=== PATIENT | female | born 1995 | race African-American/Black ===

== ENCOUNTER 2023-04-04 17:44 | Emergency (ER) | payer SELFPAY | END 2023-04-04 17:50 | disposition left against medical advice (07) | LOC: ER 17:48 | DX: Z04.3 Encounter for examination and observation following other accident (principal); W19.XXXA Unspecified fall, initial encounter ==

== ENCOUNTER 2023-08-30 09:50 | Emergency (ER) | payer SELFPAY ==
[2023-08-30] MEDS ORDERED: NS IV 1000 ML 1,000 ML IV ONE (10:15)
--- NOTE | 2023-08-30 10:26 | ED General ---
General Chief Complaint: Upper Extremity Stated Complaint: LEFT HAND SWELLING / PAIN Nursing Triage Note: PT AMB TO [facility] 5 PT CO OF L HAND PAIN, PT IS RAMBLING ON CO L HAND PAIN, HAS NUMBEROUS CO WONDERING IF IS , SAYING SOME ONE CUT OFF PART OF TOE, STATES SOMEONE TRIED TO CUT OPEN HAND WHERE INFECTION WAS. PT IS HOMELESS. REPORTS DOES SMOKE POT AND USE METH. PT ALSO REPORTS MENTAL HEALTH ISSUES. PT HAS DIFFICULTY STAYING ON TASK. PT HAS BLISTER INBETWEEN FIRST AND SECOND FINGERS HAS A BLISTER, PT HAS REDDNESS AND PAIN. Source of Information: Patient Exam Limitations: No Limitations History of Present Illness Date Seen by Provider: Aug 30, 2023 Time Seen by Provider: 09:55 Initial Comments Here with report of left hand pain over the last 2 days and is associated with swelling. Apparently somebody was trying to help her and was going to open the wound by cutting it open. That was attempted last night but she could not take the pain so that was stopped. She does admit to smoking marijuana but denies meth use recently. Does admit to a few shots of alcohol but states she is trying to get off that as well. Unsure of why she has the wound to her left hand between the second and third finger. Adamantly denies that she was trying to inject there. Also complains of wound to the top of the right great toe that she is unsure of cause. She has similar but smaller wound on the left great toe and states that it may be from her sandals. Denies fevers but does admit to not feeling well. She is currently homeless but is staying at the [facility]. She is also concerned that she could be as have history with difficulties during including gestational diabetes. Complains of pain when moving the index finger and to a lesser extent the middle finger on the left hand. Redness and swelling noted and reported between the fingers with a blister that is currently nondraining. Timing/Duration: 2-3 Days, Getting Worse Severity: Moderate Modifying Factors: worse with Movement Associated Systoms: No Chest Pain, No Cough; Malaise; No Nausea/Vomiting, No Shortness of Air, No Weakness Allergies and Home Medications Allergies Coded Allergies: No Known Drug Allergies (Unverified , 08/30/23) Patient Home Medication List Home Medication List Reviewed: Yes Clindamycin HCl (Clindamycin HCl) 300 Mg Capsule, 300 MG PO QID Prescribed by: JOSE GAINES on 08/30/23 1219 Ibuprofen (Ibuprofen) 800 Mg Tablet, 800 MG PO Q8H PRN for PAIN Prescribed by: JOSE GAINES on 08/30/239 Review of Systems Review of Systems Constitutional: see HPI, chills; No fever; malaise EENTM: No nose congestion Respiratory: No cough, No short of breath Cardiovascular: No chest pain, No edema Gastrointestinal: constipation; No nausea, No vomiting Genitourinary: No dysuria, No frequency Musculoskeletal: No back pain; joint pain, muscle pain Skin: change in color, lesions Psychiatric/Neurological: Anxiety; Denies Weakness Past Phpavwr-Eaxedn-Doguqm Hx Patient Social History Tobacco Use?: Yes Tobacco type used: Cigarettes Smoking Status: Current Everyday Smoker Substance use?: Yes Substance type: Methamphetamine, Marijuana Substance frequency: Daily Alcohol Use?: Yes Alcohol Frequency: Daily Pt feels they are or have been: No Past Medical History Surgery/Hospitalization HX: MENTAL HEALTH ISSUES Surgeries: No Respiratory: No Cardiac: No Neurological: No Last Menstrual Period: Aug 16, 2023 Psychosocial: Yes Anxiety, PTSD, Bipolar, Depression Family Medical History Reviewed Nursing Family Hx No Pertinent Family Hx Physical Exam-Suspected Sepsis Physical Exam Vital Signs Vital Signs - First Documented 08/30/23 09:55 Temp 35.6 Pulse 107 Resp 18 B/P (MAP) 123/79 (94) Pulse Ox 100 Capillary Refill : Less Than 3 Seconds Blood Pressure Mean: 94 Height, Weight, BMI Height: '" Weight: lbs. oz. kg; BMI Method: General Appearance: WD/WN, Mild Distress HEENT: PERRL/EOMI, Pharynx Normal Neck: Non Tender, Supple Respiratory: Lungs Clear, Normal Breath Sounds Cardiovascular: No Murmur, Tachycardia Gastrointestinal: Non Tender, Soft Back: Normal Inspection, No CVA Tenderness, No Vertebral Tenderness Extremity: No Calf Tenderness, Other (Swelling with redness noted between the second and third digit in the webspace on the palmar side where there is blister noted with increasing redness and pain especially over the second metacarpal and MCP area and to a lesser extent the third metacarpal. No red streaks extending above the hand. Swelling noted in the area. Difficulty with range of motion of the second digit on flexion and extension and pain limited on both active and passive range of motion. This is improved in the third digit. No Tatian's to range of motion at the wrist.) Neurologic/Psychiatric: Alert, Oriented x3, Other (Sometimes activated speech and flight of ideas but redirectable) Skin: warm/dry, other (Erythema as noted above with wound as noted above) Focused Exam Lactate Level 08/30/23 10:50: Lactic Acid Level 0.70 Lactic Acid Level Laboratory Tests Test 08/30/23 10:50 Lactic Acid Level 0.70 MMOL/L (0.50-2.00) Procedures/Interventions I&D : Site: Left hand webspace second and third digit Blade Size: 11 I & D Procedure: betadine prep, sterile drapes applied, sterile dressing applied Progress Wound anesthetized using local and regional digital block with 1% lidocaine x7 mL. Anesthesia obtained. With 11 blade scalpel and small amount of purulent drainage obtained. This was cultured. Wound did not track into the hand itself and seem to be more topical. This was covered with antibiotic ointment and sterile dressing and secured with gauze by me. Tolerated procedure well with no complications. Progress/Results/Core Measures Suspected Sepsis SIRS Temperature: Pulse: 107 Respiratory Rate: 18 Laboratory Tests 08/30/23 10:48: White Blood Count 7.9 Blood Pressure 123 /79 Mean: 94 08/30/23 10:50: Lactic Acid Level 0.70 Laboratory Tests 08/30/23 10:48: Creatinine 0.59L, INR Comment 1.0, Platelet Count 243, Total Bilirubin 0.3 Results/Orders Lab Results Laboratory Tests Test 08/30/23 10:16 08/30/23 10:48 08/30/23 10:50 Range/Units Urine Color YELLOW Urine Clarity CLEAR Urine pH 7.5 5-9 Urine Specific [place] 1.020 1.016-1.022 Urine Protein NEGATIVE NEGATIVE Urine Glucose (UA) NEGATIVE NEGATIVE Urine Ketones NEGATIVE NEGATIVE Urine Nitrite NEGATIVE NEGATIVE Urine Bilirubin NEGATIVE NEGATIVE Urine Urobilinogen 1.0 < = 1.0 MG/DL Urine Leukocyte Esterase NEGATIVE NEGATIVE Urine RBC (Auto) NEGATIVE NEGATIVE Urine RBC NONE /HPF Urine WBC NONE /HPF Urine Squamous Epithelial Cells 2-5 /HPF Urine Crystals PRESENT H /LPF Urine Amorphous Sediment LARGE KISHA PHOSPHATE H /LPF Urine Bacteria TRACE /HPF Urine Casts NONE /LPF Urine Mucus SMALL H /LPF Urine Culture Indicated NO Urine Opiates Screen NEGATIVE NEGATIVE Urine Oxycodone Screen NEGATIVE NEGATIVE Urine Methadone Screen NEGATIVE NEGATIVE Urine Barbiturates Screen NEGATIVE NEGATIVE Ur Tricyclic Antidepressants Screen NEGATIVE NEGATIVE Urine Phencyclidine Screen NEGATIVE NEGATIVE Urine Amphetamines Screen POSITIVE H NEGATIVE Urine Methamphetamines Screen POSITIVE H NEGATIVE Urine Benzodiazepines Screen NEGATIVE NEGATIVE Urine Cocaine Screen NEGATIVE NEGATIVE Urine Cannabinoids Screen POSITIVE H NEGATIVE White Blood Count 7.9 4.3-11.0 10^3/uL Red Blood Count 3.99 3.80-5.11 10^6/uL Hemoglobin 12.9 11.5-16.0 g/dL Hematocrit 39 35-52 % Mean Corpuscular Volume 97 80-99 fL Mean Corpuscular Hemoglobin 32 25-34 pg Mean Corpuscular Hemoglobin Concent 33 32-36 g/dL Red Cell Distribution Width 13.3 10.0-14.5 % Platelet Count 243 130-400 10^3/uL Mean Platelet Volume 10.5 9.0-12.2 fL Immature Granulocyte % (Auto) 0 % Neutrophils (%) (Auto) 66 42-75 % Lymphocytes (%) (Auto) 24 12-44 % Monocytes (%) (Auto) 6 0-12 % Eosinophils (%) (Auto) 4 0-10 % Basophils (%) (Auto) 0 0-10 % Neutrophils # (Auto) 5.2 1.8-7.8 10^3/uL Lymphocytes # (Auto) 1.9 1.0-4.0 10^3/uL Monocytes # (Auto) 0.4 0.0-1.0 10^3/uL Eosinophils # (Auto) 0.3 0.0-0.3 10^3/uL Basophils # (Auto) 0.0 0.0-0.1 10^3/uL Immature Granulocyte # (Auto) 0.0 0.0-0.1 10^3/uL Percent Immature Platelet Fraction 2.0 0.0-7.6 % Prothrombin Time 13.7 12.2-14.7 SEC INR Comment 1.0 0.8-1.4 Activated Partial Thromboplast Time 25 24-35 SEC Sodium Level 140 135-145 MMOL/L Potassium Level 4.5 3.6-5.0 MMOL/L Chloride Level 109 H 98-107 MMOL/L Carbon Dioxide Level 20 L 21-32 MMOL/L Anion Gap 11 5-14 MMOL/L Blood Urea Nitrogen 9 7-18 MG/DL Creatinine 0.59 L 0.60-1.30 MG/DL Estimat Glomerular Filtration Rate 127 BUN/Creatinine Ratio 15 Glucose Level 99 70-105 MG/DL Calcium Level 8.9 8.5-10.1 MG/DL Corrected Calcium 9.1 8.5-10.1 MG/DL Total Bilirubin 0.3 0.1-1.0 MG/DL Aspartate Amino Transf (AST/SGOT) 18 5-34 U/L Alanine Aminotransferase (ALT/SGPT) 14 0-55 U/L Alkaline Phosphatase 86 40-136 U/L C-Reactive Protein High Sensitivity 1.24 H 0.00-0.50 MG/DL Total Protein 6.5 6.4-8.2 GM/DL Albumin 3.7 3.2-4.5 GM/DL Serum Test, Qualitative NEGATIVE NEGATIVE Lactic Acid Level 0.70 0.50-2.00 MMOL/L My Orders Orders - JOSE GAINES MD Cbc And Automated Diff (08/30/23 10:15) Comprehensive Metabolic Panel (08/30/23 10:15) Blood Culture (08/30/23 10:15) Sputum Culture (08/30/23 10:15) Urinalysis (08/30/23 10:15) Urine Culture (08/30/23 10:15) Protime With Inr (08/30/23 10:15) Partial Thromboplastin Time (08/30/23 10:15) Ed Iv/Invasive Line Start (08/30/23 10:15) Vital Signs Adult Sepsis Patie Q15M (08/30/23 10:15) O2 (08/30/23 10:15) Remove Rings In Anticipation O (08/30/23 10:15) Lactic Acid Analyzer (08/30/23 10:15) Hs C Reactive Protein (08/30/23 10:15) Drug Screen Stat (Urine) (08/30/23 10:15) Hcg,Qualitative Serum (08/30/23 10:15) Ns Iv 1000 Ml (Ns Iv 1000 Ml) (08/30/23 10:15) Hand, Left, 3 Views (08/30/23 10:15) Dipht/Pertuss(Acell)/Tet Adult (Dipht/Pe (08/30/23 11:30) Lidocaine 1% Inj 20 Ml (Xylocaine 1% Inj (08/30/23 11:22) General/Regular (08/30/23 Lunch) Clindamycin 900 Mg/50 Ml Ivpb (Clindamyc (08/30/23 12:15) Ketorolac Injection (Ketorolac Injection (08/30/23 12:10) Wound Culture (08/30/23 12:10) Medications Given in ED Current Medications Medications Dose Ordered Sig/Bart Route Start Time Stop Time Status Last Admin Dose Admin Clindamycin Phosphate/Dextrose 50 ml @ 100 mls/hr ONCE ONCE IV 08/30/23 12:15 08/30/23 12:44 DC 08/30/23 12:19 100 MLS/HR Diphtheria/ Tetanus/Acell Pertussis 0.5 ml ONCE ONCE IM 08/30/23 11:30 08/30/23 11:31 DC 08/30/23 11:31 0.5 ML Sodium Chloride 1,000 ml @ 0 mls/hr Q0M ONCE IV 08/30/23 10:15 08/30/23 10:20 DC 08/30/23 10:54 0 MLS/HR Vital Signs/I&O 08/30/23 08/30/23 09:55 11:45 Temp 35.6 [id number] Pulse 107 Resp 18 B/P (MAP) 123/79 (94) Pulse Ox 100 Capillary Refill : Less Than 3 Seconds Blood Pressure Mean: 94 Progress Note : Progress Note Seen and evaluated. IV CBC, CMP, CRP, blood cultures, lactic acid, UA, UDS and ordered. We will get x-ray of the left hand to rule out foreign body. Normal saline 1 L bolus. Monitor patient. Differential diagnosis includes local cellulitis, tenosynovitis of the left hand, sepsis, dehydration, 1214: Left hand x-ray reviewed by me and no obvious foreign body noted on my interpretation. CBC reviewed and is grossly normal. CMP reviewed and shows grossly normal electrolytes and LFTs. CRP minimally elevated. Lactic acid negative. Coags are normal. UA grossly normal. Serum negative. UDS does show positive for methamphetamine and marijuana and patient admits to methamphetamine use 2 days ago. She denies injection to the site. We did proceed with I&D given the rather normal labs and did obtain small amount of purulent drainage from wound between the webspace. This did not seem to track into the hand. She has good range of motion of the fingers after anesthesia and pain resolved. Dressed as per procedure note. We will give clindamycin 900 mg IV and continue with outpatient clindamycin and I will have her follow-up for wound recheck on Friday to evaluate the hand and to ensure that things are progressing favorably. Toradol 30 mg IV ordered for pain control and we will continue outpatient pain control with ibuprofen. Those prescriptions will be sent to the apothecary pharmacy. All of this was discussed with the patient who agrees. Discharge after antibiotics with return precautions. Patient verbalized understanding of instructions and agreement with plan. 1338: Patient has tolerated meal well and we are discharging her now. Diagnostic Imaging Diagonstic Imaging: Xray Plain Films/CT/US/NM/MRI: other Comments [facility], [place] NAME: SHERI MOREIRA [facility] REC#: [id number] PT STATUS: REG ER : 1995 PHYSICIAN: JOSE GAINES MD ADMIT DATE: 08/30/23/ER Draft Date of Exam:08/30/23 HAND, LEFT, 3 VIEWS INDICATION: Hand pain. FINDINGS: 3 views of the left hand performed. Possible laceration. There is an Angiocath over the dorsum of the mid and no suspicious foreign body. No fracture or dislocation. IMPRESSION: No acute appearing abnormality. Dictated on workstation # [id number] Dict: 08/30/23 1108 Trans: 08/30/23 1110 [id number] Interpreted by: RYAN LAUREANO Electronically signed by: Departure Impression Primary Impression: Abscess of left hand excluding fingers and thumb Disposition: 01 HOME, SELF-CARE Condition: Stable Departure-Patient Inst. Decision time for Depature: 12:17 Referrals: NO,LOCAL PHYSICIAN (PCP/Family) Primary Care Physician Patient Instructions: Skin Abscess, Abscess Incision and Drainage (DC) Add. Discharge Instructions: All discharge instructions reviewed with patient and/or family. Voiced understanding. You have an abscess on the left hand that was drained. It is very important that you take the antibiotics as prescribed. It is also very important that you return on Friday for recheck and further evaluation of the wound and to verify improvement. Return earlier if you are having red streaks of the hand, fever, markedly increased pain, chills or for other concerns as needed. You may take Tylenol/acetaminophen for 1000 mg every 6-8 hours as needed for fever or pain and you may take the prescribed ibuprofen as well. Return Friday morning for recheck. Scripts Ibuprofen (Ibuprofen) 800 Mg Tablet 800 MG PO Q8H PRN for PAIN, #30 TAB 0 Refills Prov: JOSE GAINES MD 08/30/23 Clindamycin HCl (Clindamycin HCl) 300 Mg Capsule 300 MG PO QID for 10 Days, #30 CAP 0 Refills Prov: JOSE GAINES MD 08/30/23 JOSE GAINES MD Aug 30, 2023 10:26
[2023-08-30 10:36] LABS: CLARITY,URINE CLEAR; COLOR,URINE YELLOW; PH,URINE 7.5 (5-9); PROTEIN,URINE NEGATIVE (NEGATIVE)
[2023-08-30 10:37] LABS: BILIRUBIN,URINE NEGATIVE (NEGATIVE); GLUCOSE, URINE (UA) NEGATIVE (NEGATIVE); KETONES,URINE NEGATIVE (NEGATIVE); LEUKOCYTE ESTERASE ,URINE NEGATIVE (NEGATIVE); NITRITE,URINE NEGATIVE (NEGATIVE)
[2023-08-30 10:38] LABS: AMORPHOUS SEDIMENT,UR LARGE AMOR PHOSPHATE /LPF; BACTERIA,URINE TRACE /HPF
[2023-08-30 10:39] LABS: AMPHETAMINE SCREEN, URINE POSITIVE (NEGATIVE); BARBITURATE SCREEN URINE NEGATIVE (NEGATIVE); CANNABINOID SCREEN, URINE POSITIVE (NEGATIVE); COCAINE SCREEN URINE NEGATIVE (NEGATIVE); METHADONE STAT NEGATIVE (NEGATIVE); OPIATE SCREEN URINE NEGATIVE (NEGATIVE); OXYCODONE STAT NEGATIVE (NEGATIVE); TRICYCLIC ANTIDEPRESSANTS SCRE NEGATIVE (NEGATIVE)
[2023-08-30 10:57] LABS: BASOPHILS % (AUTO) 0 % (0-10); EOSINOPHILS # (AUTO) 0.3 10^3/uL (0.0-0.3); EOSINOPHILS % (AUTO) 4 % (0-10); HEMATOCRIT 39 % (35-52); HEMOGLOBIN 12.9 g/dL (11.5-16.0); LYMPHOCYTES # (AUTO) 1.9 10^3/uL (1.0-4.0); LYMPHOCYTES % (AUTO) 24 % (12-44); MEAN CORPUSCULAR HEMOGLOBIN 32 pg (25-34); MEAN CORPUSCULAR HGB CONC 33 g/dL (32-36); MEAN CORPUSCULAR VOLUME 97 fL (80-99); MEAN PLATELET VOLUME 10.5 fL (9.0-12.2); MONOCYTES # (AUTO) 0.4 10^3/uL (0.0-1.0); MONOCYTES % (AUTO) 6 % (0-12); NEUTROPHILS # (AUTO) 5.2 10^3/uL (1.8-7.8); NEUTROPHILS % (AUTO) 66 % (42-75); WHITE BLOOD COUNT 7.9 10^3/uL (4.3-11.0)
[2023-08-30 11:01] LABS: PLATELET COUNT 243 10^3/uL (130-400)
[2023-08-30 11:05] LABS: ALBUMIN 3.7 GM/DL (3.2-4.5); POTASSIUM 4.5 MMOL/L (3.6-5.0)
[2023-08-30 11:06] LABS: CALCIUM 8.9 MG/DL (8.5-10.1)
[2023-08-30 11:07] LABS: TOTAL PROTEIN 6.5 GM/DL (6.4-8.2)
[2023-08-30 11:09] LABS: BILIRUBIN,TOTAL 0.3 MG/DL (0.1-1.0)
[2023-08-30 11:11] LABS: CREATININE SERUM 0.59 MG/DL (0.60-1.30)
--- NOTE | 2023-08-30 11:11 | Diagnostic Imaging Report ---
INDICATION: Hand pain. FINDINGS: 3 views of the left hand performed. Possible laceration. There is an Angiocath over the dorsum of the mid and no suspicious foreign body. No fracture or dislocation. IMPRESSION: No acute appearing abnormality. Dictated by: Dictated on workstation # [id number]
[2023-08-30] MEDS ORDERED: LIDOCAINE 1% INJ 20 ML VIAL IJ STA (11:22)
[2023-08-30 11:23] LABS: PROTHROMBIN TIME PATIENT 13.7 SEC (12.2-14.7)
[2023-08-30] MEDS ORDERED: Tetanus/Diphtheria/Pertussis (Acell) ADULT Vaccine 0.5 ML IM ONE (11:30)
[2023-08-30] MEDS ORDERED: KETOROLAC INJ 30 MG/ML VIAL IVP STA (12:10)
[2023-08-30] MEDS ORDERED: CLINDAMYCIN 900 MG/50 ML IVPB 50 ML IV ONE (12:15)
[2023-08-30] MEDS ORDERED: IBUP-1780 PO (12:19)
[2023-08-30] MEDS ORDERED: CLIN-144 PO (12:19)
[2023-08-30 13:46] VITALS: BP 132/85
== END 2023-08-30 13:47 | disposition home or self-care (01) ==
LOC: EDUNIT# 09:50 → ER 09:51
DX: L02.512 Cutaneous abscess of left hand (principal); F17.210 Nicotine dependence, cigarettes, uncomplicated; Z23 Encounter for immunization
CPT/HCPCS: 36415; 73130; 80053; 80306; 81000; 83605; 84703; 85025; 85610; 85730; 86141; 87040; 87070; 87077; 87088; 87186; 87205; 90471; 90715; 96361; 96365; 96375